=== PATIENT | female | born 1955 | race Caucasian/White ===

== ENCOUNTER → 2018-07-19 15:25 | Outpatient (CLI) | payer SELFPAY ==
--- NOTE | 2018-07-19 15:31 | BI_ITS ---
MAMMOGRAPHY - BILATERAL SCREENING REASON FOR EXAM: Female, 62 years old. Routine annual screening examination. PERTINENT HISTORY: Sister with breast cancer. TECHNIQUE: Digital bilateral breast rayo (3D mammographic acquisition) in the CC and MLO projections. 2-D mediolateral oblique (MLO) and craniocaudad (CC) views of both breasts were obtained. CAD: Full Field Digital Mammography with Computer Added Detection was performed. COMPARISON: Comparison is made with prior study June 10, 2017 and December 05, 2015. FINDINGS: Breast Composition: The breasts are heterogeneously dense, which may obscure small masses. There are no dominant masses or suspicious calcifications. Small benign stable right axillary lymph nodes. No other significant abnormalities are identified. There has been no significant change since the prior study. BI/SCREENING MAMM (CAD), BILAT IMPRESSION: Stable bilateral screening mammogram. Yearly follow-up mammogram recommended. (A) ASSESSMENT CATEGORY: BIRADS Category 2: Benign. A letter regarding these results will be sent to the patient by the facility within 30 days. Approximately 10% of breast cancers are not detected by mammography. A normal mammogram should not delay biopsy of a clinically suspicious abnormality. [id number] Electronically Signed: Kwasi Herrera MD at 8:51 EST , Service support ,
== END ==
PROVIDERS: Family Provider Family Medicine; PCP Family Medicine; Referring Provider Family Medicine; Visit Provider Family Medicine
DX: Z12.31 Encounter for screening mammogram for malignant neoplasm of breast (principal); Z80.3 Family history of malignant neoplasm of breast
CPT/HCPCS: 77063; 77067

== ENCOUNTER → 2019-11-21 08:01 | Outpatient (CLI) | payer SELFPAY ==
--- NOTE | 2019-11-21 08:18 | BI_ITS ---
MAMMOGRAPHY - BILATERAL SCREENING REASON FOR EXAM: Female, 64 years old. Routine annual screening examination. PERTINENT HISTORY: Sister with breast cancer. TECHNIQUE: Digital bilateral breast vadim (3D mammographic acquisition) in the CC and MLO projections. 2-D mediolateral oblique (MLO) and craniocaudad (CC) views of both breasts were obtained. CAD: Full Field Digital Mammography with Computer Added Detection was performed. COMPARISON: Comparison is made with prior examination of July 19, 2018 and March 11, 2017. FINDINGS: Breast Composition: The breasts are heterogeneously dense, which may obscure small masses. There are no dominant masses or suspicious calcifications. Stable small benign-appearing bilateral axillary lymph nodes. No other significant abnormalities are identified. There has been no significant change since the prior study. BI/SCREEN MAMM (CAD) W/VADIM BILAT IMPRESSION: Stable bilateral screening mammogram. Yearly follow-up mammogram recommended. (A) ASSESSMENT CATEGORY: BIRADS Category 2: Benign. A letter regarding these results will be sent to the patient by the facility within 30 days. Approximately 10% of breast cancers are not detected by mammography. A normal mammogram should not delay biopsy of a clinically suspicious abnormality. [id number] Electronically Signed: Kwasi Herrera, at 9:38 EDT , Service support ,
== END ==
PROVIDERS: PCP Family Medicine; Referring Provider Family Medicine; Visit Provider Family Medicine
DX: Z12.31 Encounter for screening mammogram for malignant neoplasm of breast (principal)
CPT/HCPCS: 77063; 77067

== ENCOUNTER → 2020-05-08 | Outpatient (CLI) | payer MEDICARE, SELFPAY | END | disposition home or self-care (01) | LOC: LABSPEC 13:40 | PROVIDERS: PCP Family Medicine; Referring Provider Family Medicine; Visit Provider Family Medicine | DX: U07.1 COVID-19 (principal) | CPT/HCPCS: 87635; U0003 ==

== ENCOUNTER → 2020-05-22 16:26 | Outpatient (CLI) | payer SELFPAY ==
[2020-05-22 18:47] LABS: D-Dimer Quantitative (DVT/PE) 0.67 FEU/ug/m (0.27-0.49)
== END ==
LOC: MFPLAB 16:27
PROVIDERS: PCP Family Medicine; Referring Provider Family Medicine; Visit Provider Family Medicine
DX: R06.02 Shortness of breath (principal)
CPT/HCPCS: 36415; 85379

== ENCOUNTER → 2020-05-23 18:56 | Outpatient (CLI) | payer SELFPAY ==
--- NOTE | 2020-05-23 19:01 | CT_ITS ---
STUDY: CT CHEST WITH CONTRAST REASON FOR EXAM: Female, 64 years old. CHEST TIGHTNESS, SOB SINCE WEDNESDAY,ELEVATED D-DIMER, COVID 3 WEEKS AGO RADIATION DOSAGE (If Supplied By Facility): CTDIvol = ( 7.49 ) mGy, DLP = ( 248.92 ) mGycm TECHNIQUE: Transaxial imaging was performed following intravenous administration of IV 100mL Isovue-370. Multiplanar coronal and sagittal images were reformatted. Individualized dose optimization techniques were used for this CT. COMPARISON: None. FINDINGS: There are patchy small peripheral groundglass infiltrates of the posterior upper lung zones few scattered minimal groundglass infiltrates of the lower lung zones. Thin and broad atelectatic bands in the posterior lung bases. Negative for pleural effusion. Normal heart and pericardium. Trace pericardial effusion. Normal mediastinum. Normal hilar regions. Negative for pulmonary embolus. Minimal plaque and mild elongation of the thoracic aorta without aneurysm or dissection. There are multi-level degenerative changes of the thoracic spine. No acute findings in the upper abdomen. Multiple small gallstones in a nondistended gallbladder. CT/Chest WITH Contrast IMPRESSION: Negative for pulmonary embolus. Mild plaque in the ligation of the thoracic aorta without aneurysm or dissection. Normal cardiac size. Trace pericardial effusion. Negative for coronary calcifications. Patchy small peripheral groundglass infiltrates of the upper lung zones with a few scattered minimal groundglass infiltrates of the lower lung zones. Thickened then atelectatic and in the lung bases. Negative for pleural effusion. Findings are consistent with a pneumonic process of viral/atypical or typical nature. These imaging features are commonly reported with Covid 19 pneumonia. Relatively mild amount of infiltrate at this time. Electronically Signed: Jess Burgos MD at 20:18 EST , Service support ,
[2020-05-23 19:11] LABS: CREATININE FINGERSTICK 1.1 mg/dL (0.55-1.02)
== END ==
PROVIDERS: PCP Family Medicine; Visit Provider Family Medicine
DX: R79.89 Other specified abnormal findings of blood chemistry (principal)
CPT/HCPCS: 71260; Q9967

== ENCOUNTER → 2020-12-20 10:31 | Outpatient (CLI) | payer MEDICARE, OTHER, SELFPAY ==
[2020-12-20 12:30] LABS: Absolute Lymphocyte Count 3.07 X10^3/uL (0.83-4.51); Basophil# 0.04 X10^3/uL; Basophil% 0.6 % (0-1); Eosinophil# 0.08 X10^3/uL; Eosinophils% 1.2 % (0-5); Hematocrit 42.7 % (37-47); Hemoglobin 13.5 g/dL (12.0-15.0); Lymphocyte # 3.07 X10^3/ul (0.83-4.51); Lymphocyte % 45.5 % (19-41); Mean Corp Hgb Conc 31.6 g/dL (32-36); Mean Corpuscular Hgb 30.1 pg (27.0-32.0); Mean Corpuscular Volume 95.3 fL (81-99); Mean Platelet Vol. 10.5 fl (6.2-12.0); Monocyte# 0.59 X10^3/uL; Monocyte% 8.8 % (0-10); NRBC Flagged by Analyzer 0 % (0-5); Neutrophil # 2.95 X10^3/uL (2.7-7.7); Neutrophil % 43.8 % (47-70); Platelet Count 264 K/mm3 (150-450); RBC Distribution Width CV 13.8 % (11.6-14.6); RBC Distribution Width SD 48.9 fl (35.1-43.9); Red Blood Count 4.48 M/mm3 (4.2-5.4); White Blood Count 6.7 K/mm3 (4.4-11.0)
[2020-12-20 12:31] LABS: Anion Gap 4 (5-15); BUN 17 mg/dL (7-18); BUN/Creat Ratio 19.3 RATIO (10-20); Calcium,Total 8.9 mg/dL (8.5-10.1); Chloride 108 mmol/L (98-107); Cholesterol 212 mg/dL (200); Creatinine, Serum 0.88 mg/dL (0.55-1.02); EST Glomerular Filtration Rate 69 mL/min (>60); Est Glom Filt Rate - Afr Amer 83 mL/min (>60); Glucose 82 mg/dL (74-106); High Density Lipoprotein 88 mg/dL; Potassium 4.3 mmol/L (3.5-5.1); Sodium Level 138 mmol/L (136-145); Triglycerides 37 mg/dL; Very Low Density Lipoprotein 7 mg/dL (5-40)
[2020-12-27 14:47] LABS: Age Gdln ACOG Testing 30-65
[2020-12-27 14:57] LABS: HPV APTIMA, High Risk Negative; HPV Reflexed? YES, CHARGE PATIENT
== END ==
PROVIDERS: PCP Family Medicine; Referring Provider Family Medicine; Visit Provider Family Medicine
DX: Z00.00 Encounter for general adult medical examination without abnormal findings (principal); U07.1 COVID-19; B02.9 Zoster without complications; Z12.4 Encounter for screening for malignant neoplasm of cervix; Z01.419 Encounter for gynecological examination (general) (routine) without abnormal findings
CPT/HCPCS: 36415; 80048; 80061; 85025; 86769; 87624; 88175; G0145

== ENCOUNTER → 2021-01-16 11:39 | Outpatient (CLI) | payer MEDICARE, OTHER, SELFPAY ==
--- NOTE | 2021-01-16 11:46 | BI_ITS ---
MAMMOGRAPHY - BILATERAL SCREENING REASON FOR EXAM: Female, 65 years old. Routine annual screening examination. PERTINENT HISTORY: Screening TECHNIQUE: Digital bilateral breast vadim (3D mammographic acquisition) in the CC and MLO projections. 2-D mediolateral oblique (MLO) and craniocaudad (CC) views of both breasts were obtained. CAD: Full Field Digital Mammography with Computer Added Detection was performed. COMPARISON: Previous mammogram obtained on 11/21/2019 FINDINGS: Breast Composition: Heterogeneously dense There are no dominant masses or suspicious calcifications. No other significant abnormalities are identified. BI/SCRN MAMM (CAD)W/VADIM BILAT IMPRESSION: Stable bilateral screening mammogram. Yearly follow-up mammogram recommended. (A) ASSESSMENT CATEGORY: BIRADS Category 1: Negative. A letter regarding these results will be sent to the patient by the facility within 30 days. Approximately 10% of breast cancers are not detected by mammography. A normal mammogram should not delay biopsy of a clinically suspicious abnormality. [id number] Electronically Signed: Ole Mehta DO at 12:29 EDT Tel , Service support ,
--- NOTE | 2021-01-16 12:30 | BD_ITS ---
STUDY: DUAL ENERGY X-RAY ABSORPTIOMETRY / DXA REASON FOR EXAM: Female, 65 years old. N95.9. Patient is postmenopausal. TECHNIQUE: Bone Mineral Density (BMD) measurements of lumbar spine and bilateral hips were obtained. COMPARISON: None. FINDINGS: Lumbar Spine (L1-L4): g/cm2 (0.812) / T-score (-2.1) / Z-score (-0.3) Findings are suggestive of osteopenia with a high fracture risk. Left Femur Total: g/cm2 (0.778) / T-score (-1.3) / Z-score (-0.1) Left Femoral Neck: g/cm2 (0.627) / T-score (-2.0) / Z-score (-0.5) Right Femur Total: g/cm2 (0.832) / T-score (-0.9) / Z-score (0.3) Right Femoral Neck: g/cm2 (-0.620) / T-score (-2.1) / Z-score (-0.5) BD/Dexa Bone Density Study IMPRESSION: The patient is considered osteopenic as outlined below according to World [employer] Organization (WHO) criteria with a high fracture risk. Reference Information: The T-score is the number of standard deviations above or below the standard which is normal for young adults at their peak bone mineral density. The World Health Organization (WHO) interprets the T-scores as follows: Above -1 Normal bone density Between -1 and -2.5 Osteopenia Equal to / or below -2.5 Osteoporosis As a practical clinical guideline, osteopenia may be graded as follows: Mild -1 through -1.5 Moderate -1.6 through -2.0 Severe -2.1 through -2.4 The Z-score is the number of standard deviations above or below age-matched controls. A Z-score of less than -1.5 would be considered abnormal. References: 1. NIH Osteoporosis and Related Bone Diseases www osteo.org 2. International Society for Clinical Densitometry www iscd.org 3. National Osteoporosis Foundation www nof.org Electronically Signed: Kwasi Herrera MD at 15:45 EDT , Service support ,
== END ==
PROVIDERS: PCP Family Medicine; Visit Provider Family Medicine
DX: Z12.31 Encounter for screening mammogram for malignant neoplasm of breast (principal); N95.9 Unspecified menopausal and perimenopausal disorder
CPT/HCPCS: 77063; 77067; 77080

== ENCOUNTER → 2021-11-11 | Outpatient (CLI) | payer MEDICARE, OTHER, SELFPAY ==
--- NOTE | 2021-11-11 08:07 | ECHOD_ITS ---
Reason For Study: CAT Procedure This was a 2D Doppler, Color Flow transthoracic echocardiogram. Exam performed in department. Left Ventricle Normal LV size. Left ventricular systolic function is normal. The estimated ejection fraction is 65 %. Normal diastology for age. No regional wall motion abnormalities noted. Right Ventricle Normal RV size. Normal systolic function. Atria Normal left atrium. Normal right atrium. Bubble contrast study negative for right to left interatrial shunt. Mitral Valve Equivocal mitral valve prolapse. Tricuspid Valve Normal tricuspid valve. Mild (1+) tricuspid valve insufficiency. Pulmonary artery systolic pressure is 30 mmHg. Aortic Valve Normal aortic valve. Trisinus/trileaflet aortic valve. Pulmonic Valve Normal pulmonic valve. Great Vessels Normal aortic root. The pulmonary artery is normal size. Normal inferior vena cava. Pericardium/Pleural No pericardial effusion. Medication 22 gauge I.V. with prn adaptor inserted into left arm. Performed a rapid injection of agitated mix of 9 cc saline and 1cc air to assess for atrial septal defect. MMode/2D Measurements & Calculations RVDd: 3.1 cm Ao root diam: 2.7 cm LAV(MOD-bp): 50.6 ml LAV(MOD-bp) Indexed: 27.6 ml/m2 LAV(MOD-sp2): 56.4 ml LAV(MOD-sp4): 44.6 ml SV(MOD-sp4): 60.3 ml SV(sp4-el): 59.4 ml LVAd ap4: 31.3 cm2 LVLd ap4: 8.2 cm EDV(MOD-sp4): 102.3 ml EDV(sp4-el): 101.0 ml LVAs ap4: 17.8 cm2 LVLs ap4: 6.4 cm ESV(MOD-sp4): 42.0 ml ESV(sp4-el): 41.6 ml EF(MOD-sp4): 58.9 % EF(sp4-el): 58.8 % LA dimension(2D): 3.7 cm LA A4 area: 17.1 cm2 RA A4 area: 14.8 cm2 Time Measurements MV dec time: 0.29 sec Doppler Measurements & Calculations MV E max valentin: 76.0 cm/sec Lat Peak E' Valentin: 7.2 cm/sec Med Peak E' Valentin: 6.3 cm/sec MV A max valentin: 70.1 cm/sec E/E' lat: 10.5 E/E' med: 12.1 MV E/A: 1.1 MV V2 max: 108.8 cm/sec Ao V2 max: 134.8 cm/sec LV V1 max: 104.6 cm/sec MV max P.7 mmHg Ao max P.3 mmHg LV V1 max P.4 mmHg MV V2 mean: 54.3 cm/sec MV mean P.4 mmHg MV V2 VTI: 37.7 cm PA V2 max: 83.8 cm/sec TR max valentin: 261.1 cm/sec TR max P.3 mmHg ECHO/Echo Complete Interpretation Summary Normal LV size. Left ventricular systolic function is normal. The estimated ejection fraction is 65 %. Pulmonary artery systolic pressure is 30 mmHg. Equivocal mitral valve prolapse. Normal diastology for age. Ordering Physician: Jacklyn Jeronimo Referring Physician: Jacklyn Jeronimo Performed By: Unique Adams RCS
== END | disposition home or self-care (01) ==
PROVIDERS: PCP Family Medicine; Referring Provider Family Medicine; Visit Provider Family Medicine
DX: R06.00 Dyspnea, unspecified (principal)
CPT/HCPCS: 93306

== ENCOUNTER → 2022-02-18 | Outpatient (CLI) | payer MEDICARE, OTHER, SELFPAY ==
--- NOTE | 2022-02-18 10:45 | BI_ITS ---
MAMMOGRAPHY - BILATERAL SCREENING REASON FOR EXAM: Female, 66 years old. Routine annual screening examination. PERTINENT HISTORY: Sister with breast cancer. TECHNIQUE: Digital bilateral breast vadim (3D mammographic acquisition) in the CC and MLO projections. 2-D mediolateral oblique (MLO) and craniocaudad (CC) views of both breasts were obtained. CAD: Full Field Digital Mammography with Computer Added Detection was performed. COMPARISON: Comparison is made with prior study dated 01/16/2021 and 11/21/2019. FINDINGS: Breast Composition: The breasts are heterogeneously dense, which may obscure small masses. There are no dominant masses or suspicious calcifications. Stable benign-appearing bilateral axillary lymph nodes. No other significant abnormalities are identified. There has been no significant change since the prior study. BI/SCRN MAMM (CAD)W/VADIM BILAT IMPRESSION: Stable bilateral screening mammogram. Yearly follow-up mammogram recommended. (A) ASSESSMENT CATEGORY: BIRADS Category 2: Benign. A letter regarding these results will be sent to the patient by the facility within 30 days. Approximately 10% of breast cancers are not detected by mammography. A normal mammogram should not delay biopsy of a clinically suspicious abnormality. [id number] Electronically Signed: Kwasi Herrera MD at 12:36 EDT ,
== END | disposition home or self-care (01) ==
LOC: OPBI 10:43
PROVIDERS: PCP Family Medicine; Visit Provider Family Medicine
DX: Z12.31 Encounter for screening mammogram for malignant neoplasm of breast (principal); Z80.3 Family history of malignant neoplasm of breast
CPT/HCPCS: 77063; 77067

== ENCOUNTER → 2023-03-03 | Outpatient (CLI) | payer MEDICARE, OTHER, SELFPAY ==
[2023-03-03 08:46] LABS: Absolute Lymphocyte Count 3.59 X10^3/uL (0.83-4.51); Absolute Neutrophil Count 2.8 X10^3/uL (2.0-7.7); Basophil# 0.05 X10^3/uL; Basophil% 0.7 % (0-1); Eosinophil# 0.16 X10^3/uL; Eosinophils% 2.2 % (0-5); Hematocrit 42.4 % (37-47); Hemoglobin 13.5 g/dL (12.0-15.0); Lymphocyte # 3.59 X10^3/ul (0.83-4.51); Lymphocyte % 50.1 % (19-41); Mean Corp Hgb Conc 31.8 g/dL (32-36); Mean Corpuscular Hgb 30.1 pg (27.0-32.0); Mean Corpuscular Volume 94.6 fL (81-99); Monocyte# 0.56 X10^3/uL; Monocyte% 7.8 % (0-10); NRBC Flagged by Analyzer 0 % (0-5); Neutrophil % 39.1 % (47-70); Platelet Count 247 K/mm3 (150-450); RBC Distribution Width CV 13.1 % (11.6-14.6); RBC Distribution Width SD 45.7 fl (35.1-43.9); Red Blood Count 4.48 M/mm3 (4.2-5.4); White Blood Count 7.2 K/mm3 (4.4-11.0)
--- NOTE | 2023-03-03 08:50 | BI_ITS ---
MAMMOGRAPHY - BILATERAL SCREENING REASON FOR EXAM: Female, 67 years old. Routine annual screening examination. PERTINENT HISTORY: Sister with breast cancer. TECHNIQUE: Digital bilateral breast vadim (3D mammographic acquisition) in the CC and MLO projections. 2-D mediolateral oblique (MLO) and craniocaudad (CC) views of both breasts were obtained. CAD: Full Field Digital Mammography with Computer Added Detection was performed. COMPARISON: Comparison is made with prior study February 18, 2022 and January 16, 2021. FINDINGS: Breast Composition: The breasts are heterogeneously dense, which may obscure small masses. There are no dominant masses or suspicious calcifications. Stable benign-appearing bilateral axillary lymph nodes. No other significant abnormalities are identified. There has been no significant change since the prior study. BI/SCRN MAMM (CAD)W/VADIM BILAT IMPRESSION: Stable bilateral screening mammogram. Yearly follow-up mammogram recommended. (A) ASSESSMENT CATEGORY: BIRADS Category 2: Benign. A letter regarding these results will be sent to the patient by the facility within 30 days. Approximately 10% of breast cancers are not detected by mammography. A normal mammogram should not delay biopsy of a clinically suspicious abnormality. [id number] Electronically Signed: Kwasi Herrera MD at 9:57 EDT ,
[2023-03-03 09:33] LABS: Vitamin D,25 Hydroxy 36.1 ng/mL
[2023-03-03 09:41] LABS: ALB/GLOB Ratio 1.4 RATIO (0.9-2.4); AST(SGOT) 47 U/L (15-37); Alanine Aminotransfer ALT/SGPT 69 U/L (13-56); Albumin, Serum 3.8 g/dL (3.2-5.0); Alkaline Phosphatase 88 U/L (45-117); Anion Gap 4 (5-15); BUN 16 mg/dL (7-18); BUN/Creat Ratio 20.9 RATIO (10-20); Calcium,Total 8.5 mg/dL (8.5-10.1); Chloride 111 mmol/L (98-107); Cholesterol 198 mg/dL (200); Creatinine, Serum 0.77 mg/dL (0.55-1.02); EST Glomerular Filtration Rate 80 mL/min (>60); Est Glom Filt Rate - Afr Amer 96 mL/min (>60); Globulin 2.8 g/dL (2.2-4.2); Glucose 86 mg/dL (74-106); High Density Lipoprotein 64 mg/dL; Potassium 4.2 mmol/L (3.5-5.1); Protein, Total 6.6 g/dL (6.4-8.2); Sodium Level 142 mmol/L (136-145); Triglycerides 73 mg/dL; Very Low Density Lipoprotein 15 mg/dL (5-40)
== END | disposition home or self-care (01) ==
LOC: OPBI 08:48
PROVIDERS: PCP Family Medicine; Referring Provider Family Medicine; Visit Provider Family Medicine
DX: Z12.31 Encounter for screening mammogram for malignant neoplasm of breast (principal); M85.859 Other specified disorders of bone density and structure, unspecified thigh; E78.5 Hyperlipidemia, unspecified; R06.00 Dyspnea, unspecified
CPT/HCPCS: 36415; 77063; 77067; 80053; 80061; 82306; 85025

== ENCOUNTER → 2023-06-28 | Outpatient (CLI) | payer MEDICARE, OTHER, SELFPAY ==
--- OUTSIDE RECORDS SUMMARY | 2023-06-28 08:20 | XMS RPT_ITS | CCD ---
Author Name Unknown Address [address] [facility] [address] [place] [address] Organization [facility] Care Team Providers Care Dietitian Research Name Role Phone ROBBY, DR SKYE Isabel Admitting Unavaila ble ROBBY, DR SKYE Isabel Attending Unavaila ble ROBBY, DR SKYE Isabel Primary Care Unavaila ble MIEDEL, CAMI Consulting Unavailable MIEDEL, CAMI Referring Unavailable PROVIDER, UNKNOWN Consulting Unavailable PROVIDER, UNKNOWN Consulting Unavailable ABBY BANEGAS MD Admitting Unavailable ABBY BANEGAS MD Attending Unavailable ABBY BANEGAS MD Primary Care Unavailable MIJOSEEL, CAMI Consulting Unavailable PROVIDER, UNKNOWN Consulting Unavailable PROVIDER, UNKNOWN Consulting Unavailable ABBY BANEGAS MD Admitting Unavailable ABBY BANEGAS MD Attending Unavailable ABBY BANEGAS MD Primary Care Unavailable MIEDEL, CAMI Consulting Unavailable PROVIDER, UNKNOWN Consulting Unavailable PROVIDER, UNKNOWN Consulting Unavailable Dr. Abby Banegas Attending Unavailab le Problems Problem Classification Problem Date Documented Da te Episodic/Chronic Conduction disorders (3 sources) Unspecified right bundle-branch block; Translations: [Unspecified right bundle-branch block] Onset: 03-12-2022 Chronic Disorders of lipid metabolism (3 sources) Hyperlipidemia, unspecified; Translations: [Hyperlipidemia, unspecified] Onset: 03-12-2022 Chronic Heart valve disorders (3 sources) Nonrheumatic mitral (valve) prolapse; Translations: [Nonrheumatic mitral (valve) prolapse] Onset: 03-12-2022 Chronic Other lower respiratory disease (6 sources) Shortness of breath; Translations: [Shortness of breath] Onset: 12-30-2021 Episodic Residual codes; unclassified (3 sources) Family history of ischemic heart disease and other diseases of the circulatory system; Translations: [Family hx of ischem heart dis and oth dis of the circ sys] Onset: 03-12-2022 Episodic Spondylosis; intervertebral disc disorders; other back problems (3 sources) Cervicalgia; Translations: [Cervicalgia] Onset: 01-27-2022 Episodic Results Test Name Value Interpretation Reference Range Facil ity Encounters Encounter Date Encounter Type Care Provider Facility Start: 03-12-[address] Abby Sands acility:[id number] Start: 01-27-2022 End: 01-27-2022 ambulatory ABBY MCLAUGHLIN BANEGAS [facility] Start: 01-27-2022 End: 01-27-2022 Emergency department patient visit DR SKYE BUSTAMANTE [facility] Start: 12-30-2021 End: 12-30-2021 ambulatory ABBY MCLAUGHLIN [facility] Payers Date Payer Category Payer Unknown [id number] [id number] [id number] 1955 Unknown [id number] [id number] [id number] 1955 Unknown [id number] [id number] [id number] 1955 Unknown [id number] Medicare [id number] Medicare [id number] Unknown [id number] Summary Purpose Family History No Family History Records FoundNo Family History Records Found Advance Directives No Advanced Directives Records FoundNo Advanced Directives Records Found Additional Source Comments INFORMATION SOURCE (unrecogn ized section and content) DATE CREATED AUTHOR AUTHOR'S ORGANIZ ATION 03/16/2022 [facility] FOR RECORDS PERTAINING TO PATIENTS WHO ARE OR HAVE BEEN ENROLLED IN A CHEMICAL DEPENDENCY/SUBSTANCEABUSE PROGRAM, SOME INFORMATION MAY BE OMITTED. This clinical summary was aggregated from multiple sources. Caution should be exercised in using it in the provision of clinical care. This summary normalizes information from multiple sources, and as a consequence, information in this document may materially change the coding, format and clinical context of patient data. In addition, data may be omitted in some cases. CLINICAL DECISIONS SHOULD BE BASED ON THE PRIMARY CLINICAL RECORDS. [facility]. provides no warranty or guarantee of the accuracy or completeness of information in this document.
[2023-06-28 11:48] LABS: AST(SGOT) 24 U/L (15-37); Alanine Aminotransfer ALT/SGPT 26 U/L (13-56); Albumin, Serum 3.8 g/dL (3.2-5.0); Alkaline Phosphatase 75 U/L (45-117); Bilirubin, Direct 0.18 mg/dL (0.00-0.30); Globulin 2.9 g/dL (2.2-4.2); Protein, Total 6.7 g/dL (6.4-8.2)
== END | disposition home or self-care (01) ==
LOC: LAB 08:15
PROVIDERS: PCP Family Medicine; Referring Provider Family Medicine; Visit Provider Family Medicine
DX: R79.89 Other specified abnormal findings of blood chemistry (principal)
CPT/HCPCS: 36415; 80076

== ENCOUNTER → 2024-03-17 | Outpatient (CLI) | payer MEDICARE, OTHER, SELFPAY ==
--- NOTE | 2024-03-17 08:46 | BI_ITS ---
MAMMOGRAPHY - BILATERAL SCREENING REASON FOR EXAM: Female, 68 years old. Routine annual screening examination. PERTINENT HISTORY: Sister with breast cancer. TECHNIQUE: Digital bilateral breast vadim (3D mammographic acquisition) in the CC and MLO projections. 2-D mediolateral oblique (MLO) and craniocaudad (CC) views of both breasts were obtained. CAD: Full Field Digital Mammography with Computer Added Detection was performed. COMPARISON: Comparison is made with prior study dated March 03, 2023 and February 18, 2022. FINDINGS: Breast Composition: The breasts are heterogeneously dense, which may obscure small masses. There are no dominant masses or suspicious calcifications. Stable small benign-appearing bilateral axillary lymph nodes. No other significant abnormalities are identified. There has been no significant change since the prior study. BI/SCRN MAMM (CAD)W/VADIM BILAT IMPRESSION: Stable bilateral screening mammogram. Yearly follow-up mammogram recommended. (A) ASSESSMENT CATEGORY: BIRADS Category 2: Benign. A letter regarding these results will be sent to the patient by the facility within 30 days. Approximately 10% of breast cancers are not detected by mammography. A normal mammogram should not delay biopsy of a clinically suspicious abnormality. [id number] Electronically Signed: Kwasi Herrera MD at 10:15 EDT ,
== END | disposition home or self-care (01) ==
PROVIDERS: PCP Family Medicine; Referring Provider Family Medicine; Visit Provider Family Medicine
DX: Z12.31 Encounter for screening mammogram for malignant neoplasm of breast (principal)
CPT/HCPCS: 77063; 77067

== ENCOUNTER → 2025-04-03 | Outpatient (CLI) | payer MEDICARE, SELFPAY ==
--- NOTE | 2025-04-03 10:23 | BI_ITS ---
EXAM: SCRN MAMM (CAD)W/VADIM BILAT DATE: 04/03/2025 CLINICAL HISTORY: F, Age 69 y/o , SCREENING TECHNIQUE: Procedure Code: [id number] Modality: MG Procedure: SCRN MAMM (CAD)W/VADIM BILAT COMPARISON: Prior exam(s) were compared FINDINGS: TISSUE DENSITY: The breasts are heterogeneously dense, which may obscure small masses. Bilateral Breast Mammographic Findings: No suspicious masses, calcifications or other abnormalities are identified. BI/SCRN MAMM (CAD)W/VADIM BILAT IMPRESSION: No mammographic evidence of malignancy in either breast. OVERALL FINAL ASSESSMENT BI-RADS 1: NEGATIVE. RECOMMENDATION: Routine annual follow-up in 1 Year Additional Recommendation none A letter with findings and recommendations will be mailed to the patient. Reading Location: [id number]
--- OUTSIDE RECORDS SUMMARY | 2025-04-03 11:13 | XMS RPT_ITS | CCD ---
Author Organization [facility] Inform ion Partnership [facility] Care Team Providers Care Scleroscope Tester Name Role Phone Dr. Jacklyn Jeronimo Primary Care Provider [phone] Dr. Dain Mendenhall Attending Provider [phone] ROBBY, DR SKYE Isabel Admitting Unavaila ble ROBBY, DR SKYE Isabel Attending Unavaila ble ROBBY, DR SKYE Isabel Primary Care Unavaila ble JACKLYN JERONIMO Consulting Unavailable JACKLYN JERONIMO Referring Unavailable PROVIDER, UNKNOWN Consulting Unavailable PROVIDER, UNKNOWN Consulting Unavailable ABBY BANEGAS MD Admitting Unavailable ABBY BANEGAS MD Attending Unavailable ABBY BANEGAS MD Primary Care Unavailable JACKLYN JERONIMO Consulting Unavailable PROVIDER, UNKNOWN Consulting Unavailable PROVIDER, UNKNOWN Consulting Unavailable ABBY BANEGAS MD Admitting Unavailable ABBY BANEGAS MD Attending Unavailable ABBY BANEGAS MD Primary Care Unavailable JACKLYN JERONIMO Consulting Unavailable PROVIDER, UNKNOWN Consulting Unavailable PROVIDER, UNKNOWN Consulting Unavailable Dr. Abby Banegas Attending Unavailab le Jacklyn Jeronimo Referring Unavailable Jacklyn Jeronimo Attending Unavailable Jacklyn Jeronimo Primary Care Unavailable Problems Problem Classification Problem Date Documented Da te Episodic/Chronic Cardiac dysrhythmias (4 sources) Palpitations; Translations: [Palpitations] 07-11-2020 Episodic Conduction disorders (3 sources) Unspecified right bundle-branch block; Translations: [Unspecified right bundle-branch block] Onset: 03-12-2022 Chronic Disorders of lipid metabolism (3 sources) Hyperlipidemia, unspecified; Translations: [Hyperlipidemia, unspecified] Onset: 03-12-2022 Chronic Heart valve disorders (3 sources) Nonrheumatic mitral (valve) prolapse; Translations: [Nonrheumatic mitral (valve) prolapse] Onset: 03-12-2022 Chronic Other lower respiratory disease (6 sources) Shortness of breath; Translations: [Shortness of breath] Onset: 12-30-2021 Episodic Other screening for suspected conditions (not mental disorders or infectious disease) (1 source) Encounter for screening mammogram for malignant neoplasm of breast; Translations: [Encounter for screening mammogram for malignant neoplasm of breast] Onset: 03-21-2025 Episodic Pneumonia (except that caused by tuberculosis or sexually transmitted disease) (4 sources) Pneumonia; Translations: [Pneumonia, unspecified organism] 06-20-2020 Episodic Residual codes; unclassified (3 sources) Family history of ischemic heart disease and other diseases of the circulatory system; Translations: [Family hx of ischem heart dis and oth dis of the circ sys] Onset: 03-12-2022 Episodic Spondylosis; intervertebral disc disorders; other back problems (3 sources) Cervicalgia; Translations: [Cervicalgia] Onset: 01-27-2022 Episodic Viral infection (4 sources) Disease caused by 2019-nCoV; Translations: [COVID-19] 06-20-2020 Episodic Results Test Name Value Interpretation Reference Range Facility Basophil percentageOrdered B y: Jacklyn Jeronimo on 06-28-2023 Bilirubin [Mass/Vol] 0.80 mg/dL 0.20-1.00 [facility] Comment on above: For patients on eltr ombopag therapy, use of Dimension [place] TBIL is not recommended. Protein [Mass/Vol] 6.7 g/dL 6.4-8.2 [facility] Direct bilirubinOrdered By: Jacklyn Jeronimo on 06-28-2023 Bilirubin.direct [Mass/Vol] 0.18 mg/dL 0.00-0.30 [facility] Laboratory - Chemistry and C hemistry - challengeOrdered By: Jacklyn Jeronimo on 06-28-2023 ALP [Catalytic activity/Vol] 75 U/L 45-117 [facility] ALT [Catalytic activity/Vol] 26 U/L 13-56 [facility] Globulin (S) [Mass/Vol] 2.9 g/dL 2.2-4.2 [facility] Serum or plasma albumin gricelda urement (mass/volume)Ordered By: Jacklyn Jeronimo on 06-28-2023 Albumin [Mass/Vol] 3.8 g/dL 3.2-5.0 [facility] Thin prep Papanicolaou smear with manual screeningOrdered By: Jacklyn Jeronimo on 06-28-2023 Thin prep Papanicolaou smear with manual screening 24 U/L 15-37 [facility] Absolute lymphocyte countOrd ered By: Jacklyn Jeronimo on 03-03-2023 Lymphocytes Auto (Unsp spec) [#/Vol] 3.59 10*3/uL 0.83-4.51 [facility] Basophil percentageOrdered B y: Jacklyn Jeronimo on 03-03-2023 Basophils/100 WBC (Bld) 0.7 % 0-[address] [facility] Bilirubin [Mass/Vol] 0.80 mg/dL 0.20-1.00 [facility] Comment on above: For patients on eltr ombopag therapy, use of Dimension [place] TBIL is not recommended. Chloride [Moles/Vol] 111 mmol/L 98-107 [facility] Cholesterol [Mass/Vol] 198 mg/dL <200 [facility] Comment on above: <200 mg/dL Desirable 200-240 mg/dL Borderline >240 mg/dL High Risk Eosinophils/100 WBC (Bld) 2.2 % 0-5 [facility] Glucose [Mass/Vol] 86 mg/dL 74-106 [facility] Neutrophils (Bld) [#/Vol] 2.8 10*3/uL 2.0-7.7 [facility] Neutrophils/100 WBC (Bld) 39.1 % 47-70 [facility] Potassium [Moles/Vol] 4.2 mmol/L 3.5-5.1 [facility] Protein [Mass/Vol] 6.6 g/dL 6.4-8.2 [facility] Sodium [Moles/Vol] 142 mmol/L 136-145 [facility] Triglyceride [Mass/Vol] 73 mg/dL <[address] [facility] Comment on above: The drugs N-Acetylcy steine and Metamizole may falsely depress this assay.Serum Triglycerides Reference Interval Normal <150 mg/dL Borderline high 150 - 199 mg/dL High 200 - 499 mg/dL Very High > or = 500 mg/dL WBC (Bld) [#/Vol] 7.2 10*3/uL 4.4-11.0 [facility] Blood erythrocytes count (nu mber/volume)Ordered By: Jacklyn Jeronimo on 03-03-2023 RBC (Bld) [#/Vol] 4.48 10*6/uL 4.2-5.4 [facility] Blood hemoglobin measurement (mass/volume)Ordered By: Jacklyn Jeronimo on 03-03-2023 Hemoglobin (Bld) [Mass/Vol] 13.5 g/dL 12.0-15.0 [facility] Blood lymphocytes/100 leukoc ytesOrdered By: Jacklyn Jeronimo on 03-03-2023 Lymphocytes/100 WBC (Bld) 50.1 % 19-41 [facility] Blood monocytes/100 leukocyt esOrdered By: Jacklyn Jeronimo on 03-03-2023 Monocytes/100 WBC (Bld) 7.8 % 0-[address] [facility] Blood platelet mean volumeOr dered By: Jacklyn Jeronimo on 03-03-2023 Platelet mean volume (Bld) [Entitic vol] 10.0 fL 6.2-12.0 [facility] Determination of erythrocyte mean corpuscular volume (MCV)Ordered By: Jacklyn Jeronimo on 03-03-2023 MCV (RBC) [Entitic vol] 94.6 fL 81-[address] [facility] Hematocrit Auto (Bld) [Volum e fraction]Ordered By: Jacklyn Jeronimo on 03-03-2023 Hematocrit (Bld) [Volume fraction] 42.4 % 37-47 [facility] Laboratory - Chemistry and C hemistry - challengeOrdered By: Jacklyn Jeronimo on 03-03-2023 ALP [Catalytic activity/Vol] 88 U/L 45-117 [facility] ALT [Catalytic activity/Vol] 69 U/L 13-56 [facility] CO2 [Moles/Vol] 27.0 mmol/L 21.0-32.0 [facility] Globulin (S) [Mass/Vol] 2.8 g/dL 2.2-4.[address] [facility] Urea nitrogen/Creatinine [Mass ratio] 20.9 mg/mg 10-20 [facility] Laboratory - Hematology and Cell countsOrdered By: Jacklyn Jeronimo on 03-03-2023 Erythrocyte distribution width (RBC) [Entitic vol] 45.7 fL 35.1-43.9 [facility] Erythrocyte distribution width (RBC) [Ratio] 13.1 % 11.6-14.6 [facility] Immature granulocytes/100 WBC (Bld) 0.100 % 0.0-0.9 [facility] Comment on above: IG% - Immature Granu locytes (promyelocytes, myelocytes and metamyelocytes) > 1% indicates that a LEFT SHIFT is Present. MCH (RBC) [Entitic mass] 30.1 pg 27.0-32.0 [facility] Nucleated RBC/100 WBC (Bld) [Ratio] 0 % 0-5 [facility] MCHC Auto (RBC) [Mass/Vol]Or dered By: Jacklyn Jeronimo on 03-03-2023 MCHC (RBC) [Mass/Vol] 31.8 g/dL 32-36 [facility] No Panel InformationOrdered By: Jacklyn Jeronimo on 03-03-2023 Estimated GFR (MDRD) Amer 96 mL/min >60 [facility] Comment on above: GFR Calc Estimated GFR (MDRD) Non-Af Amer 80 mL/min >60 [facility] Comment on above: Non- GFR Calc Vitamin D 25-Hydroxy 36.1 ng/mL [facility] Comment on above: Vitamin D 25(OH) Sta tus Range Deficiency <20 ng/mL (50nmol/L) Insufficiency 20 - 30 ng/mL (50 - 75 nmol/L) Sufficiency 30 - 100 ng/mL (75 - 250 nmol/L) Toxicity >100 ng/mL (>250 nmol/L) Platelets bldOrdered By: Ross Jeronimo on 03-03-2023 Platelets (Bld) [#/Vol] 247 10*3/uL 150-450 [facility] Serum or plasma albumin gricelda urement (mass/volume)Ordered By: Jacklyn Jeronimo on 03-03-2023 Albumin [Mass/Vol] 3.8 g/dL 3.2-5.0 [facility] Serum or plasma albumin/glob ulin mass ratioOrdered By: Jacklyn Jeronimo on 03-03-2023 Albumin/Globulin [Mass ratio] 1.4 {ratio} 0.9-2.4 [facility] Serum or plasma calcium gricelda urement (mass/volume)Ordered By: Jacklyn Jeronimo on 03-03-2023 Calcium [Mass/Vol] 8.5 mg/dL 8.5-10.1 [facility] Serum or plasma cholesterol in HDL measurement (mass/volume)Ordered By: Jacklyn Jeronimo on 03-03-2023 Cholesterol in HDL [Mass/Vol] 64 mg/dL >40 [facility] Comment on above: The drugs N-Acetylcy steine and Metamizole may falsely depress this assay. Reference Range HDL <40 mg/dL Low HDL Cholesterol HDL >or= 60 mg/dL High HDL Cholesterol Serum or plasma cholesterol in VLDL measurement (mass/volume)Ordered By: Jacklyn Jeronimo on 03-03-2023 Cholesterol in VLDL [Mass/Vol] 15 mg/dL 5-40 [facility] Serum or plasma creatinine m easurement (mass/volume)Ordered By: Jacklyn Jeronimo on 03-03-2023 Creatinine [Mass/Vol] 0.77 mg/dL 0.55-1.02 [facility] Comment on above: The validity of the calculated GFR & GFRAA in patients over 70 years has not been determined. Clinical correlation is essential. Serum or plasma low density lipoprotein (LDL) cholesterol measurement (mass/volume)Ordered By: Jacklyn Jeronimo on 03-03-2023 Cholesterol in LDL [Mass/Vol] 119 mg/dL 0-130 [facility] Serum or plasma urea nitroge n measurement (mass/volume)Ordered By: Jacklyn Jeronimo on 03-03-2023 Urea nitrogen [Mass/Vol] 16 mg/dL 7-18 [facility] Thin prep Papanicolaou smear with manual screeningOrdered By: Jacklyn Jeronimo on 03-03-2023 Thin prep Papanicolaou smear with manual screening 47 U/L 15-37 [facility] Thin prep Papanicolaou smear with manual screening 4 5-15 [facility] CT CARDIAC SCORINGon 022 CT CARDIAC SCORING Patient Name: COCO MEADE STUDY: CT CARDIAC SCORING; 03/12/2022 8:47 am INDICATION: Shortness of breath. COMPARISON: None. ACCESSION NUMBER(S): [id number] ORDERING CLINICIAN: ABBY BANEGAS TECHNIQUE: Using prospective ECG gating, CT scan of the coronary arteries was performed without intravenous contrast. Coronary calcium scoring was performed according to the method of Agatston. FINDINGS: The score and distribution of calcium in the coronary arteries is as follows: Left Main Coronary: 0. Left Anterior Descendin. Left Circumflex: 0. Right Coronary Artery: 0. Total: 0. There is bilateral dependent atelectasis. The aorta is without aneurysmal dilatation evident.Calcified atheromatous disease is seen of the aorta. The heart is not enlarged. No pericardial effusion is evident. No hilar or mediastinal lymphadenopathy is evident. Structures in the visualized upper abdomen are grossly unremarkable. IMPRESSION: 1. Coronary artery calcium score of 0*. *Coronary artery calcium scoring may be helpful in predicting the risk for future coronary heart disease events. According to the [employer] Clinical Expert Consensus Task Force, such testing provides important prognostic information in patients with more than one coronary heart disease risk factor. The coronary artery calcium score correlates with the annual risk of a non-fatal myocardial infarction or coronary heart disease . Coronary artery score Annual Risk 0-99 0.4% 100-399 1.3% >400 2.4% These three breakpoints correspond to lower, intermediate and high risk states for future coronary events. Such information should be used, along with appropriate clinical judgment, to make decisions regarding the intensity of risk factor management strategies to treat blood lipids and to modify other non-lipid coronary risk factors. Reference: Edward P et al. Circulation. 2007; 115:402-426 Electronically signed by: ALIYAH HARLEY MD [facility] EMERGENCY REPORTon 2 EMERGENCY REPORT [facility] EMERGENCY ROOM REPORT NAME ACCOUNT SEX AGE ADMIT DISCHARGE PT MED. RECORD# NUMBER DATE DATE TYPE DESHAUN [id number] F 66 01/27/22 01/27/22 Jeremi Chan [id number] ROOM: ER DATE OF : 1955 DICTATING PHYSICIAN: Skye Bustamante HISTORY OF PRESENT ILLNESS: The patient had a head cold this weekend, and that has kind of resolved. Then she had neck pain that radiated down both her shoulders to the collar bone. She denies any fevers, chills, nausea or vomiting. Whenever she moves her head, she said it gives her intense pain. It is a 9/10, and she cannot tolerate it and presents to the Emergency Department. PAST MEDICAL HISTORY: Unremarkable. PAST SURGICAL HISTORY: Knee surgery. SOCIAL HISTORY: The patient does not smoke or drink. REVIEW OF SYSTEMS: Ten systems were reviewed and were negative except as mentioned above. PHYSICAL EXAMINATION: VITAL SIGNS: She is afebrile. Pulse is 105, respirations 18, blood pressure 152/91, and pulse oximetry 98% on room air. HEENT: Head is normocephalic, atraumatic. Eyes: Pupils are equal, round and reactive to light. NECK: She has limited range of motion with flexion and extension secondary to pain. ABDOMEN: Abdomen is soft, nontender and nondistended. SKIN: Skin is warm and dry. CARDIAC: Heart rate without murmur. DIAGNOSTIC DATA: We did do a CT, which showed multilevel degenerative changes with varying degrees of foraminal narrowing, especially in C3-C4 and C5-C6. EMERGENCY DEPARTMENT COURSE AND TREATMENT: We did do a COVID test. She was concerned about COVID and meningitis because she Googled meningitis. Clinically, she has no signs of meningitis other than she has neck pain. I will place her on prednisone for the neck pain. I did offer her a spinal tap, as that is really the only way I can determine whether she has meningitis or not, and she declined this at this time. She was told to return if any problems or concerns. PLAN/DISPOSITION: The patient will be discharged to home. Page 1 of 2 GINGER MEADEAREAyan Chan Emergency Room Report DESHAUN COCO Chan : 1955 Dictated By: Skye Bustamante DO 01/27/22 13:29 JOB #: [id number] Transcribed By: malathi 01/29/22 06:32 Electronically signed by: NARESH Bustamante DO 01/30/22 08:17 Page 2 of 2 DESHAUN COCO S Emergency Room Report Normal [facility] CHEST 2 VIEWSon 01-27-2022 CHEST 2 VIEWS [place] [address] Patient: COCO MEADE Phone#: : 1955 Age: 66 Gender: F Pt. Type: Out Account: [id number] Location: [facility] Ordering: ABBY BANEGAS Exam Date: 01/27/2022/14:00 Family Phys: JACKLYN JERONIMO Charge Code: [id number] Physician: Bailey Order #: [id number] DLP Dose#: PROCEDURE: X-RAY CHEST 2 VIEWS COMPARISON: None. INDICATIONS: Shortness of breath. FINDINGS: LUNGS: Normal. No significant pulmonary parenchymal abnormalities. VASCULATURE: Normal. Unremarkable pulmonary vasculature. CARDIAC: Mild cardiomegaly. MEDIASTINUM: Normal. No visible mass or adenopathy. PLEURA: Normal. No effusion or pleural thickening. BONES: Mild curvature of the racks is spine to the right is present. OTHER: Negative. CONCLUSION: No acute disease. Dictated by: Brenda Mauricio MD on 01/27/2022 at 14:18 Approved by: Brenda Mauricio MD on 01/27/2022 at 14:18 Normal [facility] CORONAVIRUS (SARS) ANTIGEN T ESTon 01-27-2022 EXTERNAL QC DONE? YES Normal [facility] Comment on above: Performed By: #### 2 [id number] #### [place] [address] INTERNAL CONTROL PASS Normal [facility] Comment on above: Performed By: #### 2 [id number] #### [place] [id number] SARS ANTIGEN Negative Normal NORMAL: NEGATIVE [facility] Comment on above: Performed By: #### 2 [id number] #### [place] [id number] SEND TO ? YES Normal [facility] Comment on above: Result Comment: SARS -CoV-2 THIS TEST IS BEING USED UNDER THE FDA EUA PROCEDURE. THIS ASSAY HAS BEEN VALIDATED AT [facility] FOR USE WITH NASAL AND NASOPHARYNGEAL SWAB SPECIMENS. INTERPRETIVE DATA TEST RESULTS SHOULD ALWAYS BE CONSIDERED IN THE CONTEXT OF CLINICAL OBSERVATIONS AND EPIDEMIOLOGICAL DATA IN MAKING FINAL DIAGNOSIS AND PATIENT MANAGEMENT DECISIONS. PATIENT MANAGEMENT SHOULD FOLLOW CURRENT CDC GUIDELINES. THE ROBI SARS ANTIGEN SERGIO DOES NOT DIFFERENTIATE BETWEEN SARS-CoV & SARS-CoV-2. A POSITIVE TEST RESULT INDICATES THE PRESENCE OF SARS-CoV-2 NUCLEOCAPSID PROTEIN ANTIGEN, AND THE PATIENT IS INFECTED WITH THE VIRUS AND PRESUMED TO BE CONTAGIOUS. A NEGATIVE TEST RESULT FOR THIS TEST MEANS THAT SARS-CoV-2 NUCLEOCAPSID PROTEIN ANTIGEN WAS NOT PRESENT IN THE SPECIMEN ABOVE THE LIMIT OF DETECTION. HOWEVER, A NEGATIVE RESULT DOES NOT RULE OUT COVID-19 AND SHOULD NOT BE USED THE SOLE BASIS FOR TREATMENT OR PATIENT MANAGEMENT DECISIONS. A NEGATIVE RESULT DOES NOT EXCLUDE THE POSSIBILITY OF COVID-19. NEGATIVE RESULTS, FROM PATIENTS WITH SYMPTOM ONSET BEYOND FIVE DAYS, SHOULD BE TREATED PRESUMPTIVE AND CONFIRMATION WITH A MOLECULAR ASSAY, IF NECESSARY, FOR PATIENT MANAGEMENT, MAY BE PERFORMED. WHEN DIAGNOSTIC TESTING IS NEGATIVE, THE POSSIBLILTY OF A FALSE NEGATIVE RESULT SHOULD BE CONSIDERED IN THE CONTEXT OF A PATIENT'S RECENT EXPOSURES AND THE PRESENCE OF CLINICAL SIGNS AND SYMPTOMS CONSISTENT WITH COVID-19. THE POSSIBILITY OF A FALSE NEGATIVE RESULT SHOULD ESPECIALLY BE CONSIDERED IF THE PATIENT'S RECENT EXPOSURES OR CLINICAL PRESENTATION INDICATE THAT COVID-19 IS LIKELY, AND DIAGNOSTIC TESTS FOR OTHER CAUSES OF ILLNESS (e.g., OTHER RESPIRATORY ILLNESS) ARE NEGATIVE. IF COVID-19 IS STILL SUSPECTED BASED ON EXPOSURE HISTORY TOGETHER WITH OTHER CLINICAL FINDINGS, RE-TESTING SHOULD BE CONSIDERED BY HEALTHCARE PROVIDERS IN CONSULTATION WITH PUBLIC HEALTH AUTHORITIES. Performed By: #### 2 [id number] #### [place] [id number] CT CERVICAL W/O CONTRASTon 0 01-27-2022 CT CERVICAL W/O CONTRAST [place] [address] Patient: COCO MEADE Phone#: : 1955 Age: 66 Gender: F Pt. Type: ER Account: [id number] Location: [facility] Ordering: SKYE BUSTAMANTE Exam Date: 01/27/2022/11:22 Family Phys: JACKLYN JERONIMO Charge Code: [id number] Physician: Bailey Order #: [id number] DLP Dose#: 9.10 mGy PROCEDURE: CT CERVICAL WITHOUT CONTRAST COMPARISON: None. INDICATIONS: Pain. TECHNIQUE: Multi-planar CT images were created without intravenous contrast. All CT scans at this facility use dose modulation, iterative reconstruction, and/or weight based dosing when appropriate to reduce radiation dose to as low as reasonably achievable. IV CONTRAST: No IV contrast used,0ml TOTAL DOSE: 9.10 CTDIvol(mGy) FINDINGS: CRANIOCERVICAL AREA: Normal foramen magnum with no Chiari malformation. PARASPINAL AREA: Normal with no visible mass. BONES: Vertebral bodies are maintained in height and alignment. The dens is intact. The lateral masses are symmetric. OTHER: There are emphysematous changes in the lung apices. Calcification is seen in the right lobe of the thyroid. CERVICAL DISC LEVELS: C2-C3: No significant disc/facet abnormality, spinal stenosis, or foraminal stenosis. C3-C4: Uncovertebral hypertrophy and facet arthropathy contributes to severe right and moderate left foraminal narrowing C4-C5: Uncovertebral hypertrophy and facet arthropathy contributes to severe left and moderate right foraminal narrowing C5-C6: Uncovertebral hypertrophy and facet arthropathy contributes to mild right and severe left foraminal narrowing C6-C7: No significant disc/facet abnormality, spinal stenosis, or foraminal stenosis. C7-T1: No significant disc/facet abnormality, spinal stenosis, or foraminal stenosis. Continued Report - Page 2 of 2 Patient: COCO MEADE Phone#: : 1955 Age: 66 Gender: F Pt. Type: ER Account: [id number] Location: 052 Ordering: SKYE BUSTAMANTE Exam Date: 01/27/2022/11:22 Family Phys: JACKLYN SILVESTRELAMONTE Charge Code: [id number] Physician: Bailey Order #: [id number] DLP Dose#: 9.10 mGy CONCLUSION: 1. No acute osseous abnormality 2. Multilevel degenerative changes with varying degrees of foraminal narrowing. Severe foraminal narrowing at C3-4 through C5-6. Dictated by: Swapna Koenig MD on 01/27/2022 at 11:40 Approved by: Swapna Koenig MD on 01/27/2022 at 11:44 Normal [facility] NT-proBNPon 01-27-2022 Natriuretic peptide B (Bld) [Mass/Vol] 118 pg/mL Normal 0 - 125 [facility] Comment on above: Performed By: #### 2 [id number] #### [facility],[address] [place] [address] NM CARDIAC STRESS (SPECT) W/ TREADMILLon 12-30-2021 NM CARDIAC STRESS (SPECT) W/TREADMILL [place] [id number] Patient: COCO MEADE Phone#: : 1955 Age: 66 Gender: F Pt. Type: Out Account: [id number] Location: Ordering: ABBY BANEGAS Exam Date: 12/30/2021/7:08 Family Phys: JACKLYN MOCTEZUMAMIGUEL Charge Code: [id number] Physician: Bailey Order #: [id number] DLP Dose#: PROCEDURE: CARDIAC STRESS SPECT WITH TREADMILL EXERCISE HISTORY: Patient is a 66-year-old female COMPARISON: None. INDICATIONS: Shortness of breath TECHNIQUE: Resting and stress SPECT images acquired in the horizontal long, vertical long and short axis views. Protocol: Laci Duration: 07:12 minutes Peak Heart Rate: 155 bpm, which is 100% of maximum predicted heart rate. Workload: 8.80 METs REST DOSE: 10.5 mCi Sestamibi. STRESS DOSE: 33.7 mCi Sestamibi. INTERPRETATION: Resting Images: Resting images showed mild perfusion defect in the anterior wall which improved with stress. Stress Images: Stress images showed normal perfusion/homogeneous radiotracer uptake of the left ventricle. Gated SPECT/wall motion: Calculated ejection fraction is 68%. There are no regional wall motion abnormality seen. TID ratio is 0.94 CONCLUSION: 1. Nuclear stress test showed no conclusive evidence of reversible ischemia or infarct. 2. Calculated ejection fraction is 68% with normal wall motion. 3. TID ratio is normal. Dictated by: BEHZAD BARAHONA MD on 12/30/2021 at 10:54 Continued Report - Page 2 of 2 Patient: COCO MEADE Phone#: : 1955 Age: 66 Gender: F Pt. Type: Out Account: [id number] Location: Ordering: ABBY BANEGAS Exam Date: 12/30/2021/7:08 Family Phys: JACKLYN CLAIRE Charge Code: [id number] Physician: Bailey Order #: [id number] DLP Dose#: Approved by: BEHZAD BARAHONA MD on 12/30/2021 at 11:03 Normal [facility] NM EXERCISE STRESS TEST (W/C ARDIAC STUDYon 12-30-2021 NM EXERCISE STRESS TEST (W/CARDIAC STUDY [place] [address] Patient: COCO MEADE Phone#: : 1955 Age: 66 Gender: F Pt. Type: Out Account: [id number] Location: Ordering: ABBY BANEGAS Exam Date: 12/30/2021/7:08 Family Phys: JACKLYN JERONIMO Charge Code: [id number] Physician: Bailey Order #: [id number] DLP Dose#: PROCEDURE: ELECTROCARDIOGRAM STRESS TEST HISTORY: Patient is a 66-year-old female with hyperlipidemia COMPARISON: None. INDICATIONS: Shortness of breath TECHNIQUE: Electrocardiogram stress test was performed using the protocol listed below. STRESS RESULTS: Protocol: Laci Duration: 7:12minutes Reason for termination: CAT/FATIGUE Resting Heart Rate: 51 bpm. Resting Blood Pressure: mmHg Peak Heart Rate: 139/86 which is 100% of maximum predicted heart rate Peak Blood Pressure: 171/77 @3:50 INTO RECOVERY Workload: 8.1 METs. Symptoms with stress: Patient did not complain of any chest pain with stress. Stress test was ended due to shortness of breath and fatigue EKG Data EKG at Baseline: EKG at baseline showed sinus bradycardia at 53 BPM. Low-voltage QRS. Incomplete right bundle branch block. There is nonspecific T-wave abnormality seen EKG with Stress: EKG with stress showed sinus tachycardia at 146 BPM. There are no ST or T- wave changes to suggest ischemia CONCLUSION: 1. Patient did not complain of any chest pain with stress. Stress test was ended due to shortness of breath and fatigue 2. Patient appropriate heart rate and blood pressure response with stress Continued Report - Page 2 of 2 Patient: COCO MEADE Phone#: : [id number] Age: 66 Gender: F Pt. Type: Out Account: [id number] Location: Ordering: ABBY BANEGAS Exam Date: 12/30/2021/7:08 Family Phys: JACKLYN JERONIMO Charge Code: [id number] Physician: Bailey Order #: [id number] DLP Dose#: 3. Patient was able to achieve average workload capacity 4. Stress EKG is negative for inducible ischemia 5. Nuclear images will be read reported separately Dictated by: BEHZAD BARAHONA MD on 12/30/2021 at 10:09 Approved by: BEHZAD BARAHONA MD on 12/30/2021 at 10:16 Normal [facility] Encounters Encounter Date Encounter Type Care Provider Facility Start: 04-03-2025 ambulatory Jacklyn Jeronimo Facility: [facility] Start: 06-28-2023 End: 06-28-2023 ambulatory [facility] Work Phone: Start: 06-28-2023 End: 06-28-2023 Patient encounter procedure [facility] Work Phone: Start: 03-03-2023 End: 03-03-2023 ambulatory [facility] Work Phone: Start: 03-03-2023 End: 03-03-2023 Patient encounter procedure [facility]Out[facility] Imaging Work Phone: Start: 03-12-[address] Abby Sands acility:[id number] Start: 02-18-2022 End: 02-18-[address] Jacklyn Jeronimo Work Phone: [facility] Work Phone: Start: 02-18-2022 End: 02-18-[address] Jacklyn Jeronimo Work Phone: [facility] Start: 01-27-2022 End: 01-27-2022 ambulatory ABBY MCLAUGHLIN [facility] Start: 01-27-2022 End: 01-27-2022 Emergency department patient visit DR SKYE BUSTAMANTE [facility] Start: 12-30-2021 End: 12-30-2021 ambulatory ABBY MCLAUGHLIN [facility] Start: 11-11-2021 Non-patient / Non-visit Dr. Jake Jeronimo Work Phone: [facility] Start: 11-11-2021 End: 11-11-[address] Jacklyn Jeronimo Work Phone: [facility] Procedures Date Procedure Procedure Detail Performing Clinician Start: 03-03-2023 Screening mammography Start: 02-18-2022 Screening mammography Fatou Jeronimo Work Phone: Payers Date Payer Category Payer Self-pay [id number] 2025 Medicare [id number] 2012 Unknown [id number] 1955 Unknown [id number] 2.16.84 [id number] 1955 Unknown [id number] 2.16.84 [id number] 1955 Unknown [id number] 2.16.84 [id number] 1955 Unknown [id number] [id number] Medicare [id number] Private Health Insurance CLI [id number] Unknown [id number] Unknown [id number] Unknown [id number] Unknown [id number] 2.16.8 [id number] Social History Date Type Detail Facility Start: 06-21-2020 End: 06-21-2020 Tobacco smoking status NHIS Unknown if ever smoked [facility] Start: 1955 Sex Assigned At Female W [facility] Evaluation note Note Date & Type Note Facility Evaluation note No assessment information availa ble [facility] Work Phone: Chief Complaint and Reason for Visit Chief Complaint CAT Chief Complaint CAT SCREENING Chief Complaint SCREENING Family History No Family History Records Found Relationship Condition Age at Onset Recorded Date/T osbaldo mother Parkinson's disease Unknown sister Malignant neoplasm of breast Unknown Summary Purpose Advance Directives No Advanced Directives Records FoundNo Advanced Directives Records FoundNo Advanced Directives Records Found Additional Source Comments Goals (unrecognized section and content) Goals may be documented in a n alternate sectionGoals may be documented in an alternate sectionGoals may be documented in an alternate sectionGoals may be documented in an alternate section INFORMATION SOURCE (unrecogn ized section and content) DATE CREATED AUTHOR [facility] DATE CREATED AUTHOR AUTHOR'S ORGANIZ ATION 03/16/2022 [facility] [place] DATE CREATED AUTHOR AUTHOR'S ORGANIZ ATION 03/23/2025 [facility] Care Teams (unrecognized sec tion and content) Team Status: Active Member Role Status Dates Dr. Markus Hong MD Family Provider Active Dr. Jacklyn Jeronimo MD Primary Care Provider Active Team Status: Inactive Member Role Status Dates Dr. Jacklyn Jeronimo MD Primary Care Prov ider, Attending Provider, Referring Provider Active FOR RECORDS PERTAINING TO PATIENTS WHO ARE [...] BE BASED ON THE PRIMARY CLINICAL RECORDS. [facility] provides no warranty or guarantee of the accuracy or completeness of information in this document.
== END | disposition home or self-care (01) ==
LOC: OPBI 10:21
PROVIDERS: PCP Family Medicine; Referring Provider Family Medicine; Visit Provider Family Medicine
DX: Z12.31 Encounter for screening mammogram for malignant neoplasm of breast (principal)
CPT/HCPCS: 77063; 77067

== ENCOUNTER → 2025-05-18 | Outpatient (CLI) | payer MEDICARE, SELFPAY ==
[2025-05-18 08:57] LABS: Hematocrit 42.3 % (37-47); Hemoglobin 13.9 g/dL (12.0-15.0); Immature Granulocytes Count 0.010 X10^3/uL (0.0-0.0); Mean Corp Hgb Conc 32.9 g/dL (32-36); Mean Corpuscular Volume 92.2 fL (81-99); Mean Platelet Vol. 10.0 fl (6.2-12.0); NRBC Flagged by Analyzer 0 % (0-5); POSITIVE DIFFERENTIAL YES; POSITIVE MORPHOLOGY YES; Platelet Count 237 K/mm3 (150-450); RBC Distribution Width CV 13.2 % (11.6-14.6); RBC Distribution Width SD 44.7 fl (35.1-43.9); Red Blood Count 4.59 M/mm3 (4.2-5.4); White Blood Count 9.1 K/mm3 (4.4-11.0)
[2025-05-18 08:58] LABS: Differential Indicated SCAN CRITERIA MET
[2025-05-18 09:43] LABS: AST(SGOT) 32 U/L (<=31); Alanine Aminotransfer ALT/SGPT 38 U/L (<=34); Albumin, Serum 4.2 g/dL (3.4-4.8); Alkaline Phosphatase 75 U/L (35-104); Anion Gap 8 (5-15); BUN 15 mg/dL (4-19); BUN/Creat Ratio 17.6 RATIO (10-20); Calcium,Total 9.2 mg/dL (7.6-11.0); Carbon Dioxide 26.1 mmol/L (21.0-32.0); Chloride 106 mmol/L (98-108); Cholesterol 218 mg/dL (<=200); Globulin 2.2 g/dL (2.2-4.2); Glucose 91 mg/dL (70-99); Low Density Lipoprotein Calc. 134 mg/dL; Potassium 4.6 mmol/L (3.3-5.1); Triglycerides 73 mg/dL; Very Low Density Lipoprotein 15 mg/dL (5-40); Vitamin D,25 Hydroxy 39.0 ng/mL (30-100); cholesterol:hdl ratio screen 3.06
== END | disposition home or self-care (01) ==
LOC: LAB 08:42
PROVIDERS: PCP Family Medicine; Referring Provider Family Medicine; Visit Provider Family Medicine
DX: Z00.00 Encounter for general adult medical examination without abnormal findings (principal); E78.5 Hyperlipidemia, unspecified; M85.859 Other specified disorders of bone density and structure, unspecified thigh; R06.00 Dyspnea, unspecified
CPT/HCPCS: 36415; 80053; 80061; 82306; 85025